=== PATIENT | female | born 1995 | race Caucasian/White ===

== ENCOUNTER → 2017-11-08 | Outpatient (CLI) | payer BC ==
--- NOTE | 2017-11-08 19:45 | DIAGNOSTIC IMAGING REPORT ---
ULTRASOUND OF THE PELVIS CLINICAL HISTORY: Pelvic pain. Intrauterine device. COMPARISON STUDY: No priors. TECHNIQUE: Real-time, grayscale, and color flow sonography of the pelvis is performed both transabdominally and endovaginally. Images are reviewed in the transverse and longitudinal planes. FINDINGS: Uterus: The retroverted uterus is normal in size and echotexture, measuring 7.7 x 2.8 x 4.5 cm. Endometrium: An intrauterine device is noted within the endometrial canal and appears to be in appropriate position. This degrades assessment of the endometrial stripe which does not appear thickened. Ovaries: The ovaries are normal in size and morphology. The right ovary measures 2.9 x 2.7 x 3.0 cm and the left ovary measures 3.0 x 1.6 x 2.0 cm. Small follicles are noted bilaterally. Normal Doppler waveforms are shown within both ovaries. Pelvis: There is no free fluid in the cul-de-sac. No concerning adnexal lesion is seen. IMPRESSION: 1. No acute sonographic abnormality is identified in the pelvis. 2. An intrauterine device is identified and appears to be in appropriate position. 3. Retroverted uterus. Electronically signed by: Huang Mandujano M.D. 11/08/2017 7:43 PM Dictated Date/Time: 11/08/2017 7:42 PM
== END | disposition home or self-care (01) ==
LOC: C.ULTR 18:40
PROVIDERS: ATTEND Family Medicine
DX: N85.4 Malposition of uterus (principal); T83.32XA Displacement of intrauterine contraceptive device, initial encounter; X58.XXXA Exposure to other specified factors, initial encounter; R10.2 Pelvic and perineal pain